=== PATIENT | male | born 1955 | race Caucasian/White ===

== ENCOUNTER 2019-11-17 15:58 | Inpatient (IN) ==
[2019-11-17] MEDS ORDERED: Morphine Sulfate 2 MG/ML SYRINGE IVP ONE (16:14)
[2019-11-17 16:43] LABS: Hemoglobin 11.2 g/dL (12.9-16.9); Immature Granulocytes % 0.4 % (0-4)
[2019-11-17 16:45] LABS: Basophils % 0.5 %; Eosinophils % 0.4 %; Hematocrit 31.1 % (37.5-50.1); Lymphocytes # 1.3 K/mcL (0.6-4.6); Lymphocytes % 22.1 %; Mean Corpuscular Hemoglobin 33.8 pg (28.0-33.3); Mean Platelet Volume 11.9 fL (9.4-12.4); Monocytes # 0.6 K/mcL (0.0-1.3); Neutrophils # 3.8 K/mcL (1.6-8.9); Red Blood Count 3.31 M/mcL (4.19-5.50); Red Cell Distribution Width 13.2 % (11.5-14.5); Segmented Neutrophils % 66.6 %; White Blood Count 5.7 K/mcL (4.3-11.1)
[2019-11-17 16:50] LABS: INR 1.2; Prothrombin Time 13.7 Seconds (9.4-12.1)
[2019-11-17 16:51] LABS: Platelet Count 59 K/mcL (140-400)
[2019-11-17 16:52] LABS: Activated Partial Thrombo Time 32.9 Seconds (26.0-36.0)
[2019-11-17 17:06] LABS: Alanine Aminotransferase 65 Units/L (7-52); Albumin 3.6 g/dL (3.5-5.7); Albumin/Globulin Ratio 1.1 (1.1-2.2); Alkaline Phosphatase 264 Units/L (34-104); Aspartate Amino Transferase 254 Units/L (13-39); BUN/Creatinine Ratio 13 (6-26); Bilirubin,Direct 0.7 mg/dL (0.0-0.2); Bilirubin,Indirect 0.7 mg/dL (0.0-1.0); Bilirubin,Total 1.4 mg/dL (0.3-1.0); Blood Urea Nitrogen 7 mg/dL (8-23); Calcium 7.8 mg/dL (8.6-10.3); Carbon Dioxide 20 mEq/L (23-29); Chloride 91 mEq/L (98-107); Creatine Kinase 204 Units/L (30-223); Globulin 3.4 g/dL (2.4-3.5); Glucose 121 mg/dL (70-105); Osmolality,Calculated 255 (280-300); Potassium 3.7 mEq/L (3.5-5.1); Sodium 123 mEq/L (136-145); Troponin I < 0.03 ng/mL (< 0.04); eGFR For African Americans > 60 (> 60); eGFR For Non-African Americans > 60 (> 60)
[2019-11-17] MEDS ORDERED: *HR* LORazepam 2 MG/ML VIAL IVP PRN ×2 (18:09)
[2019-11-17] MEDS ORDERED: Thiamine (B-1) 100 MG TABLET PO SCH (18:15)
[2019-11-17] MEDS ORDERED: Folic Acid 1 MG TABLET PO SCH (18:15)
[2019-11-17] MEDS ORDERED: Vitamin B Complex/Vit C/Vit E 1 EACH TABLET PO SCH (18:15)
[2019-11-17] MEDS ORDERED: *HR* HYDROcodone/Acet 5/325 mg TABLET PO PRN (18:18)
[2019-11-17] MEDS ORDERED: Acetaminophen 325 MG TABLET PO PRN (18:18)
[2019-11-17] MEDS ORDERED: Naloxone 0.4 MG/ML INJ IVP PRN (18:18)
[2019-11-17] MEDS ORDERED: 0.9 % Sodium Chloride 1,000 ML IVC SCH (18:30)
[2019-11-17 18:34] LABS: Ethanol 411 mg/dL (Less than 10)
[2019-11-17] MEDS ORDERED: Aspirin Enteric Coated 81 MG Tablet PO SCH (18:45)
[2019-11-17] MEDS ORDERED: *HR* OxyCODONE Immed Rel 5 MG TABLET PO PRN (19:00)
[2019-11-17] MEDS: Ibuprofen 600 MG TABLET PO PRN (19:24)
[2019-11-17] MEDS: Aspirin Enteric Coated 81 MG Tablet PO SCH (21:43)
[2019-11-17] MEDS: Vitamin B Complex/Vit C/Vit E 1 EACH TABLET PO SCH (21:43)
[2019-11-17] MEDS: Thiamine (B-1) 100 MG TABLET PO SCH (21:43)
[2019-11-17] MEDS: *HR* OxyCODONE Immed Rel 5 MG TABLET PO PRN (22:11)
[2019-11-18] MEDS: Nicotine 14 MG PATCH.TD24 TD SCH ×2 (00:45→08:44)
[2019-11-18 00:57] LABS: Mean Corpuscular Volume 93.9 fL (83.0-100.0)
[2019-11-18 00:59] LABS: Hematocrit 27.5 % (37.5-50.1); Hemoglobin 9.9 g/dL (12.9-16.9); Immature Platelets 11.3 % (1.1-6.1); Mean Corpuscular Hemoglobin 33.8 pg (28.0-33.3); Mean Platelet Volume 11.7 fL (9.4-12.4); Red Blood Count 2.93 M/mcL (4.19-5.50); Red Cell Distribution Width 13.5 % (11.5-14.5); White Blood Count 5.5 K/mcL (4.3-11.1)
[2019-11-18 01:04] LABS: INR 1.2; Prothrombin Time 13.9 Seconds (9.4-12.1)
[2019-11-18 01:07] LABS: Activated Partial Thrombo Time 33.7 Seconds (26.0-36.0)
[2019-11-18 01:18] LABS: Albumin 3.1 g/dL (3.5-5.7); BUN/Creatinine Ratio 10 (6-26); Bilirubin,Direct 0.6 mg/dL (0.0-0.2); Bilirubin,Total 1.6 mg/dL (0.3-1.0); Blood Urea Nitrogen 6 mg/dL (8-23); Calcium 7.5 mg/dL (8.6-10.3); Carbon Dioxide 22 mEq/L (23-29); Chloride 95 mEq/L (98-107); Glucose 140 mg/dL (70-105); Magnesium 1.6 mg/dL (1.6-2.6); Osmolality,Calculated 268 (280-300); Phosphorous 3.3 mg/dL (2.7-4.5); Potassium 3.2 mEq/L (3.5-5.1); Sodium 129 mEq/L (136-145); Total Protein 6.1 g/dL (6.4-8.9); eGFR For African Americans > 60 (> 60); eGFR For Non-African Americans > 60 (> 60)
[2019-11-18] MEDS: Ibuprofen 600 MG TABLET PO PRN ×2 (01:55→17:29)
[2019-11-18] MEDS: *HR* OxyCODONE Immed Rel 5 MG TABLET PO PRN ×3 (04:21→23:10)
[2019-11-18] MEDS ORDERED: Calcium Gluconate 1gm/50mL 1 GM/50 ML BAG IVPB ONE (07:09)
[2019-11-18 07:57] LABS: Amphetamine Screen,Urine Negative ng/mL (Cutoff=1000); Barbiturate Screen,Urine Negative ng/mL (Cutoff=200); Benzodiazepines Screen,Urine Negative ng/mL (Cutoff=200); Cannabinoid Screen,Urine Negative ng/mL (Cutoff = 50); Cocaine Screen,Urine Negative ng/mL (Cutoff= 300); Opiate Screen,Urine Positive ng/mL (Cutoff=300); Phencyclidine Screen,Urine Negative ng/mL (Cutoff=25)
[2019-11-18] MEDS: Thiamine (B-1) 100 MG TABLET PO SCH (08:42)
[2019-11-18] MEDS: Aspirin Enteric Coated 81 MG Tablet PO SCH (08:42)
[2019-11-18] MEDS: Vitamin B Complex/Vit C/Vit E 1 EACH TABLET PO SCH (08:42)
[2019-11-18] MEDS: *HR* LORazepam 2 MG/ML VIAL IVP PRN ×4 (09:42→21:55)
[2019-11-18] MEDS ORDERED: *HR* LORazepam 2 MG/ML VIAL IVP STA (18:31)
[2019-11-18] MEDS: Lactulose Oral Soln 20 GM/30 ML UDC PO SCH (19:53)
[2019-11-18] MEDS: Folic Acid 1 MG TABLET PO SCH (19:56)
[2019-11-18] MEDS ORDERED: *HR* LORazepam 2 MG/ML VIAL IM STA (22:46)
[2019-11-19] MEDS: *HR* LORazepam 2 MG/ML VIAL IVP PRN (04:13)
[2019-11-19 07:22] LABS: Mean Corpuscular Volume 96.2 fL (83.0-100.0)
[2019-11-19 07:24] LABS: Hematocrit 28.2 % (37.5-50.1); Hemoglobin 9.8 g/dL (12.9-16.9); Immature Platelets 13.5 % (1.1-6.1); Mean Corpuscular HGB Conc 34.8 g/dL (31.6-35.5); Mean Corpuscular Hemoglobin 33.4 pg (28.0-33.3); Mean Platelet Volume 11.5 fL (9.4-12.4); Red Blood Count 2.93 M/mcL (4.19-5.50); Red Cell Distribution Width 13.5 % (11.5-14.5); White Blood Count 3.9 K/mcL (4.3-11.1)
[2019-11-19 07:44] LABS: BUN/Creatinine Ratio 11 (6-26); Blood Urea Nitrogen 6 mg/dL (8-23); Calcium 8.2 mg/dL (8.6-10.3); Carbon Dioxide 27 mEq/L (23-29); Chloride 100 mEq/L (98-107); Glucose 120 mg/dL (70-105); Magnesium 1.9 mg/dL (1.6-2.6); Osmolality,Calculated 275 (280-300); Potassium 3.8 mEq/L (3.5-5.1); Sodium 133 mEq/L (136-145); eGFR For African Americans > 60 (> 60); eGFR For Non-African Americans > 60 (> 60)
[2019-11-19 07:45] LABS: Albumin 3.4 g/dL (3.5-5.7); Albumin/Globulin Ratio 1.1 (1.1-2.2); Bilirubin,Indirect 1.6 mg/dL (0.0-1.0); Bilirubin,Total 3.6 mg/dL (0.3-1.0); Total Protein 6.4 g/dL (6.4-8.9)
[2019-11-19] MEDS: Aspirin Enteric Coated 81 MG Tablet PO SCH (07:46)
[2019-11-19] MEDS: Lactulose Oral Soln 20 GM/30 ML UDC PO SCH ×2 (07:48→19:56)
[2019-11-19] MEDS: Folic Acid 1 MG TABLET PO SCH (07:58)
[2019-11-19] MEDS: Nicotine 14 MG PATCH.TD24 TD SCH (07:59)
[2019-11-19] MEDS: Vitamin B Complex/Vit C/Vit E 1 EACH TABLET PO SCH (08:00)
[2019-11-19] MEDS: Thiamine (B-1) 100 MG TABLET PO SCH (08:00)
[2019-11-19 08:32] LABS: Hemoglobin 9.9 g/dL (12.9-16.9)
[2019-11-19 08:34] LABS: Hematocrit 28.2 % (37.5-50.1)
[2019-11-19] MEDS ORDERED: 0.9 % Sodium Chloride 250 ML ONE (14:55)
[2019-11-19] MEDS ORDERED: *HR* Promethazine 25 MG/ML VIAL IVP PRN (15:53)
[2019-11-19] MEDS ORDERED: Ondansetron 4 MG/2 ML VIAL IVP ONE (15:53)
[2019-11-19] MEDS ORDERED: *HR* HYDROmorphone PF 0.5 MG/0.5 ML SYRINGE IVP PRN (15:53)
[2019-11-19] MEDS ORDERED: *HR* OxyCODONE Immed Rel 5 MG TABLET PO PRN (15:53)
[2019-11-19] MEDS ORDERED: *HR* FentaNYL (PF) 100 MCG/2 ML VIAL ONE ×2 (16:19→17:02)
[2019-11-19] MEDS ORDERED: *HR* Succinylcholine 200 MG/10 ML VIAL IVP ONE (16:19)
[2019-11-19] MEDS ORDERED: Lidocaine -MPF 2% 2 ML VIAL ONE (16:19)
[2019-11-19] MEDS ORDERED: *HR* Propofol 200 MG/20 ML VIAL IVP ONE (16:19)
[2019-11-19] MEDS ORDERED: ceFAZolin 2,000 MG in Water for inj. (sterile) 20 ML IVP ONE (16:29)
[2019-11-19] MEDS ORDERED: Ondansetron 4 MG/2 ML VIAL ONE (16:34)
[2019-11-19] MEDS ORDERED: Dexamethasone 4 MG/ML VIAL ONE (16:34)
[2019-11-19] MEDS ORDERED: Lidocaine HCL 4 ML Topical Solution (Laryng-O-Jet Kit Sterile Pak) TP ONE (16:34)
[2019-11-19] MEDS ORDERED: *HR* Metoprolol 5 MG/5 ML VIAL IVP ONE (17:31)
[2019-11-19] MEDS ORDERED: Ondansetron 4 MG/2 ML VIAL IVP PRN (19:12)
[2019-11-19] MEDS ORDERED: Ibuprofen 600 MG TABLET PO PRN (19:12)
[2019-11-19] MEDS ORDERED: Sennosides 8.6 MG TABLET PO PRN (19:12)
[2019-11-19] MEDS ORDERED: *HR* LORazepam 2 MG/ML VIAL IVP PRN (19:12)
[2019-11-19] MEDS ORDERED: *HR* OxyCODONE/APAP 5/325 TABLET PO PRN (19:12)
[2019-11-19] MEDS: *HR* OxyCODONE Immed Rel 5 MG TABLET PO PRN (21:23)
[2019-11-20] MEDS: CeFAZolin 2 GM/120 ML BAG IVPB SCH ×2 (00:41→08:04)
[2019-11-20] MEDS: *HR* LORazepam 2 MG/ML VIAL IVP PRN (03:19)
[2019-11-20] MEDS: *HR* OxyCODONE Immed Rel 5 MG TABLET PO PRN ×3 (03:19→20:37)
[2019-11-20 05:54] LABS: Hemoglobin 9.1 g/dL (12.9-16.9)
[2019-11-20] MEDS: Lactulose Oral Soln 20 GM/30 ML UDC PO SCH ×2 (07:59→20:36)
[2019-11-20] MEDS: Folic Acid 1 MG TABLET PO SCH (08:00)
[2019-11-20] MEDS: Nicotine 14 MG PATCH.TD24 TD SCH (08:00)
[2019-11-20] MEDS: Cholecalciferol (D-3) 1,000 UNIT (25MCG) TABLET PO SCH (08:01)
[2019-11-20] MEDS: Thiamine (B-1) 100 MG TABLET PO SCH (08:01)
[2019-11-20] MEDS: Vitamin B Complex/Vit C/Vit E 1 EACH TABLET PO SCH (08:02)
[2019-11-20 08:51] LABS: Hemoglobin 9.2 g/dL (12.9-16.9)
[2019-11-20 08:52] LABS: Hematocrit 26.5 % (37.5-50.1); Immature Platelets 10.1 % (1.1-6.1); Mean Corpuscular HGB Conc 34.7 g/dL (31.6-35.5); Mean Corpuscular Hemoglobin 33.9 pg (28.0-33.3); Mean Corpuscular Volume 97.8 fL (83.0-100.0); Mean Platelet Volume 11.1 fL (9.4-12.4); Red Blood Count 2.71 M/mcL (4.19-5.50); Red Cell Distribution Width 13.5 % (11.5-14.5); White Blood Count 6.5 K/mcL (4.3-11.1)
[2019-11-20 08:59] LABS: BUN/Creatinine Ratio 12 (6-26); Blood Urea Nitrogen 7 mg/dL (8-23); Calcium 8.2 mg/dL (8.6-10.3); Carbon Dioxide 27 mEq/L (23-29); Chloride 97 mEq/L (98-107); Glucose 130 mg/dL (70-105); Osmolality,Calculated 274 (280-300); Potassium 3.9 mEq/L (3.5-5.1); Sodium 132 mEq/L (136-145); eGFR For African Americans > 60 (> 60); eGFR For Non-African Americans > 60 (> 60)
[2019-11-20] MEDS ORDERED: Naloxone 0.4 MG/ML INJ IVP PRN (11:57)
[2019-11-20] MEDS: Aspirin Enteric Coated 81 MG Tablet PO SCH (15:07)
[2019-11-21 07:56] LABS: Hematocrit 27.4 % (37.5-50.1); Hemoglobin 9.2 g/dL (12.9-16.9); Mean Corpuscular HGB Conc 33.6 g/dL (31.6-35.5); Mean Corpuscular Hemoglobin 33.7 pg (28.0-33.3); Mean Corpuscular Volume 100.4 fL (83.0-100.0); Mean Platelet Volume 11.2 fL (9.4-12.4); Platelet Count 102 K/mcL (140-400); Red Blood Count 2.73 M/mcL (4.19-5.50); Red Cell Distribution Width 13.9 % (11.5-14.5); White Blood Count 7.8 K/mcL (4.3-11.1)
[2019-11-21 08:05] LABS: BUN/Creatinine Ratio 16 (6-26); Blood Urea Nitrogen 11 mg/dL (8-23); Calcium 8.3 mg/dL (8.6-10.3); Carbon Dioxide 29 mEq/L (23-29); Chloride 98 mEq/L (98-107); Glucose 124 mg/dL (70-105); Osmolality,Calculated 279 (280-300); Potassium 3.6 mEq/L (3.5-5.1); Sodium 134 mEq/L (136-145); eGFR For African Americans > 60 (> 60); eGFR For Non-African Americans > 60 (> 60)
[2019-11-21 08:46] LABS: Alanine Aminotransferase 34 Units/L (7-52); Albumin 3.3 g/dL (3.5-5.7); Alkaline Phosphatase 203 Units/L (34-104); Aspartate Amino Transferase 99 Units/L (13-39); Bilirubin,Direct 1.8 mg/dL (0.0-0.2); Bilirubin,Indirect 1.3 mg/dL (0.0-1.0); Bilirubin,Total 3.1 mg/dL (0.3-1.0); Globulin 3.3 g/dL (2.4-3.5); Total Protein 6.6 g/dL (6.4-8.9)
[2019-11-21] MEDS: Cholecalciferol (D-3) 1,000 UNIT (25MCG) TABLET PO SCH (09:00)
[2019-11-21] MEDS: Aspirin Enteric Coated 81 MG Tablet PO SCH (09:00)
[2019-11-21] MEDS: Folic Acid 1 MG TABLET PO SCH (09:01)
[2019-11-21] MEDS: Vitamin B Complex/Vit C/Vit E 1 EACH TABLET PO SCH (09:01)
[2019-11-21] MEDS: *HR* OxyCODONE Immed Rel 5 MG TABLET PO PRN ×3 (09:01→21:21)
[2019-11-21] MEDS: Thiamine (B-1) 100 MG TABLET PO SCH (09:01)
[2019-11-21] MEDS: Nicotine 14 MG PATCH.TD24 TD SCH (09:01)
[2019-11-21] MEDS: Lactulose Oral Soln 20 GM/30 ML UDC PO SCH ×2 (09:02→21:23)
[2019-11-21] MEDS: *HR* LORazepam 2 MG/ML VIAL IVP PRN ×2 (10:09→18:25)
[2019-11-22 01:25] LABS: Hematocrit 26.2 % (37.5-50.1); Hemoglobin 8.9 g/dL (12.9-16.9); Immature Platelets 7.3 % (1.1-6.1); Mean Platelet Volume 10.8 fL (9.4-12.4); Red Blood Count 2.62 M/mcL (4.19-5.50); Red Cell Distribution Width 14.1 % (11.5-14.5); White Blood Count 7.2 K/mcL (4.3-11.1)
[2019-11-22 01:44] LABS: BUN/Creatinine Ratio 16 (6-26); Blood Urea Nitrogen 11 mg/dL (8-23); Calcium 8.4 mg/dL (8.6-10.3); Carbon Dioxide 29 mEq/L (23-29); Chloride 99 mEq/L (98-107); Glucose 114 mg/dL (70-105); Osmolality,Calculated 280 (280-300); Potassium 3.5 mEq/L (3.5-5.1); Sodium 135 mEq/L (136-145); eGFR For African Americans > 60 (> 60); eGFR For Non-African Americans > 60 (> 60)
[2019-11-22] MEDS: *HR* LORazepam 2 MG/ML VIAL IVP PRN (03:48)
[2019-11-22] MEDS: *HR* OxyCODONE Immed Rel 5 MG TABLET PO PRN ×3 (05:17→21:31)
[2019-11-22] MEDS: 0.9 % Sodium Chloride 1,000 ML IVC SCH ×2 (09:52→18:12)
[2019-11-22] MEDS: Folic Acid 1 MG TABLET PO SCH (09:57)
[2019-11-22] MEDS: Aspirin Enteric Coated 81 MG Tablet PO SCH (09:57)
[2019-11-22] MEDS: Lactulose Oral Soln 20 GM/30 ML UDC PO SCH ×2 (09:57→23:48)
[2019-11-22] MEDS: Cholecalciferol (D-3) 1,000 UNIT (25MCG) TABLET PO SCH (09:58)
[2019-11-22] MEDS: Vitamin B Complex/Vit C/Vit E 1 EACH TABLET PO SCH (09:58)
[2019-11-22] MEDS: Thiamine (B-1) 100 MG TABLET PO SCH (09:58)
[2019-11-22] MEDS: Nicotine 14 MG PATCH.TD24 TD SCH (11:00)
[2019-11-22] MEDS ORDERED: Ringers Solution, Lactated 1,000 ML IVC ONE (14:37)
[2019-11-22] MEDS ORDERED: *HR* LORazepam 2 MG/ML VIAL IVP ONE (23:29)
[2019-11-23] MEDS: *HR* OxyCODONE Immed Rel 5 MG TABLET PO PRN ×4 (01:35→20:54)
[2019-11-23 02:44] LABS: Hemoglobin 8.3 g/dL (12.9-16.9); Mean Corpuscular Volume 101.7 fL (83.0-100.0)
[2019-11-23 02:45] LABS: Hematocrit 24.4 % (37.5-50.1); Immature Platelets 5.6 % (1.1-6.1); Mean Corpuscular Hemoglobin 34.6 pg (28.0-33.3); Mean Platelet Volume 10.8 fL (9.4-12.4); Red Blood Count 2.4 M/mcL (4.19-5.50); Red Cell Distribution Width 14.4 % (11.5-14.5); White Blood Count 6.4 K/mcL (4.3-11.1)
[2019-11-23 02:58] LABS: BUN/Creatinine Ratio 17 (6-26); Blood Urea Nitrogen 9 mg/dL (8-23); Calcium 8.2 mg/dL (8.6-10.3); Carbon Dioxide 27 mEq/L (23-29); Chloride 101 mEq/L (98-107); Glucose 120 mg/dL (70-105); Osmolality,Calculated 278 (280-300); Potassium 3.6 mEq/L (3.5-5.1); Sodium 134 mEq/L (136-145); eGFR For African Americans > 60 (> 60); eGFR For Non-African Americans > 60 (> 60)
[2019-11-23] MEDS: *HR* LORazepam 2 MG/ML VIAL IVP PRN ×3 (04:39→14:12)
[2019-11-23] MEDS: Folic Acid 1 MG TABLET PO SCH (07:39)
[2019-11-23] MEDS: Aspirin Enteric Coated 81 MG Tablet PO SCH (07:39)
[2019-11-23] MEDS: Thiamine (B-1) 100 MG TABLET PO SCH (07:39)
[2019-11-23] MEDS: Vitamin B Complex/Vit C/Vit E 1 EACH TABLET PO SCH (07:40)
[2019-11-23] MEDS: Lactulose Oral Soln 20 GM/30 ML UDC PO SCH ×2 (07:41→20:46)
[2019-11-23] MEDS: Nicotine 14 MG PATCH.TD24 TD SCH (07:41)
[2019-11-23] MEDS: Cholecalciferol (D-3) 1,000 UNIT (25MCG) TABLET PO SCH (07:42)
[2019-11-23] MEDS: polyethylene glycoL 3350 17 GM POWD.PACK PO SCH (12:19)
[2019-11-23 15:28] LABS: Bilirubin,Urine Negative (Negative); Blood,Urine Moderate (Negative); Clarity,Urine Clear (Clear); Color,Urine Yellow (Yellow); Glucose,Urine (UA) Normal (Normal); Ketones,Urine Negative (Negative); Leukocyte Esterase,Urine Negative (Negative); Nitrite,Urine Negative (Negative); Protein,Urine Negative (Neg-Trace); Specific Gravity,Urine 1.009 (1.010-1.025)
[2019-11-24] MEDS: *HR* OxyCODONE Immed Rel 5 MG TABLET PO PRN ×4 (01:42→21:39)
[2019-11-24] MEDS: *HR* LORazepam 2 MG/ML VIAL IVP PRN (01:43)
[2019-11-24 05:04] LABS: Hematocrit 27.2 % (37.5-50.1); Hemoglobin 9.2 g/dL (12.9-16.9); Mean Corpuscular HGB Conc 33.8 g/dL (31.6-35.5); Mean Corpuscular Hemoglobin 34.5 pg (28.0-33.3); Mean Corpuscular Volume 101.9 fL (83.0-100.0); Mean Platelet Volume 10.3 fL (9.4-12.4); Platelet Count 146 K/mcL (140-400); Red Blood Count 2.67 M/mcL (4.19-5.50); Red Cell Distribution Width 14.5 % (11.5-14.5); White Blood Count 6.2 K/mcL (4.3-11.1)
[2019-11-24 05:16] LABS: BUN/Creatinine Ratio 14 (6-26); Blood Urea Nitrogen 7 mg/dL (8-23); Calcium 8.5 mg/dL (8.6-10.3); Carbon Dioxide 27 mEq/L (23-29); Chloride 98 mEq/L (98-107); Glucose 145 mg/dL (70-105); Osmolality,Calculated 277 (280-300); Potassium 3.5 mEq/L (3.5-5.1); Sodium 133 mEq/L (136-145); eGFR For African Americans > 60 (> 60); eGFR For Non-African Americans > 60 (> 60)
[2019-11-24] MEDS: Folic Acid 1 MG TABLET PO SCH (10:45)
[2019-11-24] MEDS: Thiamine (B-1) 100 MG TABLET PO SCH (10:46)
[2019-11-24] MEDS: Vitamin B Complex/Vit C/Vit E 1 EACH TABLET PO SCH (10:46)
[2019-11-24] MEDS: Aspirin Enteric Coated 81 MG Tablet PO SCH (10:46)
[2019-11-24] MEDS: Lactulose Oral Soln 20 GM/30 ML UDC PO SCH ×2 (10:47→21:40)
[2019-11-24] MEDS: Nicotine 14 MG PATCH.TD24 TD SCH (10:47)
[2019-11-24] MEDS: polyethylene glycoL 3350 17 GM POWD.PACK PO SCH (10:47)
[2019-11-24] MEDS: Cholecalciferol (D-3) 1,000 UNIT (25MCG) TABLET PO SCH (10:48)
[2019-11-25] MEDS: *HR* LORazepam 2 MG/ML VIAL IVP PRN ×3 (02:11→08:33)
[2019-11-25] MEDS: *HR* OxyCODONE Immed Rel 5 MG TABLET PO PRN ×2 (04:09→08:29)
[2019-11-25 05:44] LABS: Hematocrit 27.5 % (37.5-50.1); Hemoglobin 9.4 g/dL (12.9-16.9); Mean Corpuscular HGB Conc 34.2 g/dL (31.6-35.5); Mean Corpuscular Hemoglobin 34.3 pg (28.0-33.3); Mean Corpuscular Volume 100.4 fL (83.0-100.0); Mean Platelet Volume 10.9 fL (9.4-12.4); Platelet Count 168 K/mcL (140-400); Red Blood Count 2.74 M/mcL (4.19-5.50); Red Cell Distribution Width 14.6 % (11.5-14.5); White Blood Count 5.3 K/mcL (4.3-11.1)
[2019-11-25 05:57] LABS: BUN/Creatinine Ratio 16 (6-26); Blood Urea Nitrogen 9 mg/dL (8-23); Calcium 8.9 mg/dL (8.6-10.3); Carbon Dioxide 29 mEq/L (23-29); Chloride 101 mEq/L (98-107); Glucose 109 mg/dL (70-105); Osmolality,Calculated 283 (280-300); Potassium 3.5 mEq/L (3.5-5.1); Sodium 137 mEq/L (136-145); eGFR For African Americans > 60 (> 60); eGFR For Non-African Americans > 60 (> 60)
[2019-11-25] MEDS: Lactulose Oral Soln 20 GM/30 ML UDC PO SCH ×2 (08:22→20:51)
[2019-11-25] MEDS: Vitamin B Complex/Vit C/Vit E 1 EACH TABLET PO SCH (08:23)
[2019-11-25] MEDS: Aspirin Enteric Coated 81 MG Tablet PO SCH (08:23)
[2019-11-25] MEDS: polyethylene glycoL 3350 17 GM POWD.PACK PO SCH (08:23)
[2019-11-25] MEDS: Folic Acid 1 MG TABLET PO SCH (08:23)
[2019-11-25] MEDS: Cholecalciferol (D-3) 1,000 UNIT (25MCG) TABLET PO SCH (08:24)
[2019-11-25] MEDS: Thiamine (B-1) 100 MG TABLET PO SCH (08:24)
[2019-11-25] MEDS: Nicotine 14 MG PATCH.TD24 TD SCH (08:24)
[2019-11-25] MEDS ORDERED: Isovue-370 500 ML BOTTLE IVP ONE (11:22)
[2019-11-25] MEDS ORDERED: Haloperidol Lactate 5 MG/ML VIAL IVP PRN (11:24)
[2019-11-25] MEDS ORDERED: *HR* LORazepam 2 MG/ML VIAL IVP ONE (19:21)
[2019-11-25] MEDS ORDERED: *HR* LORazepam 2 MG/ML VIAL IVP PRN ×3 (19:51)
[2019-11-26] MEDS: Vitamin B Complex/Vit C/Vit E 1 EACH TABLET PO SCH (08:00)
[2019-11-26] MEDS: Aspirin Enteric Coated 81 MG Tablet PO SCH (08:00)
[2019-11-26] MEDS: Thiamine (B-1) 100 MG TABLET PO SCH (08:00)
[2019-11-26] MEDS: Cholecalciferol (D-3) 1,000 UNIT (25MCG) TABLET PO SCH (08:00)
[2019-11-26] MEDS: Nicotine 14 MG PATCH.TD24 TD SCH (08:01)
[2019-11-26] MEDS: Lactulose Oral Soln 20 GM/30 ML UDC PO SCH ×2 (08:01→20:15)
[2019-11-26] MEDS: Folic Acid 1 MG TABLET PO SCH (08:01)
[2019-11-26] MEDS ORDERED: *HR* LORazepam 2 MG/ML VIAL IVP PRN ×2 (10:15→10:16)
[2019-11-26] MEDS ORDERED: QUEtiapine Fumarate 25 MG TABLET PO SCH (21:00)
[2019-11-26] MEDS ORDERED: *HR* LORazepam 2 MG/ML VIAL IVP ONE (22:24)
[2019-11-27] MEDS: *HR* OxyCODONE Immed Rel 5 MG TABLET PO PRN ×2 (08:48→21:27)
[2019-11-27] MEDS: Cholecalciferol (D-3) 1,000 UNIT (25MCG) TABLET PO SCH (08:49)
[2019-11-27] MEDS: Aspirin Enteric Coated 81 MG Tablet PO SCH (08:49)
[2019-11-27] MEDS: Folic Acid 1 MG TABLET PO SCH (08:49)
[2019-11-27] MEDS: Vitamin B Complex/Vit C/Vit E 1 EACH TABLET PO SCH (08:50)
[2019-11-27] MEDS: Lactulose Oral Soln 20 GM/30 ML UDC PO SCH ×2 (08:50→21:17)
[2019-11-27] MEDS: Thiamine (B-1) 100 MG TABLET PO SCH (08:50)
[2019-11-27] MEDS: Nicotine 14 MG PATCH.TD24 TD SCH (08:52)
[2019-11-27] MEDS ORDERED: *HR* LORazepam 1 MG TABLET PO PRN (10:29)
[2019-11-27] MEDS ORDERED: Ringers Solution, Lactated 1,000 ML IVC ONE (18:32)
[2019-11-27] MEDS ORDERED: *HR* LORazepam 1 MG TABLET PO SCH (21:00)
[2019-11-27] MEDS ORDERED: Morphine Sulfate 2 MG/ML SYRINGE IVP ONE (22:59)
[2019-11-28] MEDS ORDERED: *HR* LORazepam 2 MG/ML VIAL IM STA ×2 (01:49→22:40)
[2019-11-28] MEDS ORDERED: Melatonin 3 MG TABLET PO ONE (03:42)
[2019-11-28 04:13] LABS: Hematocrit 32.3 % (37.5-50.1); Hemoglobin 10.5 g/dL (12.9-16.9); Mean Corpuscular HGB Conc 32.5 g/dL (31.6-35.5); Mean Corpuscular Hemoglobin 33.3 pg (28.0-33.3); Mean Corpuscular Volume 102.5 fL (83.0-100.0); Platelet Count 236 K/mcL (140-400); Red Blood Count 3.15 M/mcL (4.19-5.50); Red Cell Distribution Width 14.9 % (11.5-14.5)
[2019-11-28 04:32] LABS: BUN/Creatinine Ratio 12 (6-26); Blood Urea Nitrogen 7 mg/dL (8-23); Carbon Dioxide 29 mEq/L (23-29); Chloride 104 mEq/L (98-107); Glucose 126 mg/dL (70-105); Osmolality,Calculated 290 (280-300); Potassium 3.1 mEq/L (3.5-5.1); Sodium 140 mEq/L (136-145); eGFR For African Americans > 60 (> 60); eGFR For Non-African Americans > 60 (> 60)
[2019-11-28] MEDS: *HR* OxyCODONE Immed Rel 5 MG TABLET PO PRN ×2 (06:20→13:56)
[2019-11-28] MEDS: Lactulose Oral Soln 20 GM/30 ML UDC PO SCH ×2 (09:10→20:20)
[2019-11-28] MEDS: Aspirin Enteric Coated 81 MG Tablet PO SCH (09:11)
[2019-11-28] MEDS: Thiamine (B-1) 100 MG TABLET PO SCH (09:11)
[2019-11-28] MEDS: Cholecalciferol (D-3) 1,000 UNIT (25MCG) TABLET PO SCH (09:11)
[2019-11-28] MEDS: Folic Acid 1 MG TABLET PO SCH (09:11)
[2019-11-28] MEDS: Vitamin B Complex/Vit C/Vit E 1 EACH TABLET PO SCH (09:12)
[2019-11-28] MEDS: Nicotine 14 MG PATCH.TD24 TD SCH (09:12)
[2019-11-28] MEDS ORDERED: Nicotine 2 MG GUM BC PRN (09:47)
[2019-11-28] MEDS: Nicotine 21 MG PATCH.TD24 TD SCH (11:34)
[2019-11-28] MEDS: clonazePAM 0.5 MG TABLET PO SCH ×2 (13:56→20:19)
[2019-11-28] MEDS ORDERED: Haloperidol Lactate 5 MG/ML VIAL IVP ONE (14:24)
[2019-11-28 17:44] LABS: Bilirubin,Urine Negative (Negative); Blood,Urine Negative (Negative); Clarity,Urine Clear (Clear); Color,Urine Yellow (Yellow); Glucose,Urine (UA) Normal (Normal); Ketones,Urine Negative (Negative); Leukocyte Esterase,Urine Negative (Negative); Nitrite,Urine Negative (Negative); Protein,Urine Negative (Neg-Trace); Specific Gravity,Urine 1.005 (1.010-1.025); Urobilinogen,Urine Normal (Normal)
[2019-11-28] MEDS: traZODone 50 MG TABLET PO SCH (20:19)
[2019-11-29 01:07] LABS: Hematocrit 33.8 % (37.5-50.1); Mean Corpuscular HGB Conc 32.5 g/dL (31.6-35.5); Mean Corpuscular Hemoglobin 33.4 pg (28.0-33.3); Mean Corpuscular Volume 102.7 fL (83.0-100.0); Mean Platelet Volume 11.3 fL (9.4-12.4); Platelet Count 272 K/mcL (140-400); Red Blood Count 3.29 M/mcL (4.19-5.50); White Blood Count 8.4 K/mcL (4.3-11.1)
[2019-11-29 01:32] LABS: BUN/Creatinine Ratio 9 (6-26); Blood Urea Nitrogen 5 mg/dL (8-23); Calcium 9.4 mg/dL (8.6-10.3); Carbon Dioxide 25 mEq/L (23-29); Chloride 105 mEq/L (98-107); Glucose 115 mg/dL (70-105); Osmolality,Calculated 286 (280-300); Potassium 4.1 mEq/L (3.5-5.1); Sodium 139 mEq/L (136-145); eGFR For African Americans > 60 (> 60); eGFR For Non-African Americans > 60 (> 60)
[2019-11-29] MEDS: Vitamin B Complex/Vit C/Vit E 1 EACH TABLET PO SCH (07:38)
[2019-11-29] MEDS: Lactulose Oral Soln 20 GM/30 ML UDC PO SCH ×2 (07:38→21:02)
[2019-11-29] MEDS: Thiamine (B-1) 100 MG TABLET PO SCH (07:38)
[2019-11-29] MEDS: clonazePAM 0.5 MG TABLET PO SCH ×3 (07:38→21:02)
[2019-11-29] MEDS: Aspirin Enteric Coated 81 MG Tablet PO SCH (07:38)
[2019-11-29] MEDS: Cholecalciferol (D-3) 1,000 UNIT (25MCG) TABLET PO SCH (07:38)
[2019-11-29] MEDS: Nicotine 21 MG PATCH.TD24 TD SCH (07:39)
[2019-11-29] MEDS: Folic Acid 1 MG TABLET PO SCH (07:39)
[2019-11-29] MEDS: Haloperidol Lactate 5 MG/ML VIAL IVP SCH ×2 (14:30→23:27)
[2019-11-29] MEDS ORDERED: Haloperidol Lactate 5 MG/ML VIAL IVP SCH (18:00)
[2019-11-29] MEDS: traZODone 50 MG TABLET PO SCH (21:02)
[2019-11-30 02:35] LABS: Hematocrit 33.6 % (37.5-50.1); Hemoglobin 11.1 g/dL (12.9-16.9); Mean Corpuscular Hemoglobin 33.8 pg (28.0-33.3); Mean Corpuscular Volume 102.4 fL (83.0-100.0); Mean Platelet Volume 11.2 fL (9.4-12.4); Platelet Count 265 K/mcL (140-400); Red Blood Count 3.28 M/mcL (4.19-5.50); Red Cell Distribution Width 15.1 % (11.5-14.5); White Blood Count 7.7 K/mcL (4.3-11.1)
[2019-11-30 02:55] LABS: BUN/Creatinine Ratio 14 (6-26); Blood Urea Nitrogen 8 mg/dL (8-23); Calcium 9.1 mg/dL (8.6-10.3); Carbon Dioxide 26 mEq/L (23-29); Chloride 105 mEq/L (98-107); Glucose 105 mg/dL (70-105); Osmolality,Calculated 283 (280-300); Potassium 3.6 mEq/L (3.5-5.1); Sodium 137 mEq/L (136-145); eGFR For African Americans > 60 (> 60); eGFR For Non-African Americans > 60 (> 60)
[2019-11-30] MEDS: Vitamin B Complex/Vit C/Vit E 1 EACH TABLET PO SCH (09:04)
[2019-11-30] MEDS: Folic Acid 1 MG TABLET PO SCH (09:05)
[2019-11-30] MEDS: Thiamine (B-1) 100 MG TABLET PO SCH (09:05)
[2019-11-30] MEDS: Cholecalciferol (D-3) 1,000 UNIT (25MCG) TABLET PO SCH (09:05)
[2019-11-30] MEDS: Nicotine 21 MG PATCH.TD24 TD SCH (09:05)
[2019-11-30] MEDS: Aspirin Enteric Coated 81 MG Tablet PO SCH (09:05)
[2019-11-30] MEDS: clonazePAM 0.5 MG TABLET PO SCH ×2 (09:05→20:13)
[2019-11-30] MEDS: Lactulose Oral Soln 20 GM/30 ML UDC PO SCH ×2 (09:08→20:13)
[2019-11-30] MEDS: Haloperidol Lactate 5 MG/ML VIAL IVP SCH (09:17)
[2019-11-30] MEDS: *HR* Heparin 5,000 UNIT/ML VIAL SQ SCH (16:26)
[2019-11-30] MEDS: traZODone 50 MG TABLET PO SCH (20:13)
[2019-11-30] MEDS: haloperidoL 1 MG TABLET PO SCH (20:13)
[2019-12-01] MEDS: *HR* Heparin 5,000 UNIT/ML VIAL SQ SCH ×2 (05:15→16:49)
[2019-12-01 06:54] LABS: Hematocrit 35.6 % (37.5-50.1); Hemoglobin 11.6 g/dL (12.9-16.9); Mean Corpuscular HGB Conc 32.6 g/dL (31.6-35.5); Mean Corpuscular Hemoglobin 33.2 pg (28.0-33.3); Mean Platelet Volume 10.8 fL (9.4-12.4); Platelet Count 317 K/mcL (140-400); Red Blood Count 3.49 M/mcL (4.19-5.50); White Blood Count 7.6 K/mcL (4.3-11.1)
[2019-12-01 07:18] LABS: BUN/Creatinine Ratio 23 (6-26); Blood Urea Nitrogen 15 mg/dL (8-23); Calcium 9.1 mg/dL (8.6-10.3); Carbon Dioxide 27 mEq/L (23-29); Chloride 104 mEq/L (98-107); Glucose 122 mg/dL (70-105); Osmolality,Calculated 288 (280-300); Potassium 3.9 mEq/L (3.5-5.1); Sodium 138 mEq/L (136-145); eGFR For African Americans > 60 (> 60); eGFR For Non-African Americans > 60 (> 60)
[2019-12-01] MEDS: Folic Acid 1 MG TABLET PO SCH (09:13)
[2019-12-01] MEDS: haloperidoL 1 MG TABLET PO SCH ×2 (09:13→21:48)
[2019-12-01] MEDS: Thiamine (B-1) 100 MG TABLET PO SCH (09:13)
[2019-12-01] MEDS: Aspirin Enteric Coated 81 MG Tablet PO SCH (09:13)
[2019-12-01] MEDS: Lactulose Oral Soln 20 GM/30 ML UDC PO SCH ×2 (09:13→21:48)
[2019-12-01] MEDS: Nicotine 21 MG PATCH.TD24 TD SCH (09:13)
[2019-12-01] MEDS: Cholecalciferol (D-3) 1,000 UNIT (25MCG) TABLET PO SCH (09:14)
[2019-12-01] MEDS: clonazePAM 0.5 MG TABLET PO SCH ×2 (09:14→21:48)
[2019-12-01] MEDS: Vitamin B Complex/Vit C/Vit E 1 EACH TABLET PO SCH (09:14)
[2019-12-01] MEDS: *HR* OxyCODONE Immed Rel 5 MG TABLET PO PRN ×2 (09:17→16:49)
[2019-12-01] MEDS: traZODone 50 MG TABLET PO SCH (21:48)
[2019-12-02] MEDS: *HR* OxyCODONE Immed Rel 5 MG TABLET PO PRN ×2 (02:05→14:35)
[2019-12-02] MEDS: *HR* Heparin 5,000 UNIT/ML VIAL SQ SCH ×2 (06:06→16:58)
[2019-12-02] MEDS: Nicotine 21 MG PATCH.TD24 TD SCH (07:53)
[2019-12-02] MEDS: Lactulose Oral Soln 20 GM/30 ML UDC PO SCH ×2 (07:53→19:55)
[2019-12-02] MEDS: Aspirin Enteric Coated 81 MG Tablet PO SCH (07:56)
[2019-12-02] MEDS: Vitamin B Complex/Vit C/Vit E 1 EACH TABLET PO SCH (07:56)
[2019-12-02] MEDS: Thiamine (B-1) 100 MG TABLET PO SCH (07:56)
[2019-12-02] MEDS: Folic Acid 1 MG TABLET PO SCH (07:57)
[2019-12-02] MEDS: Cholecalciferol (D-3) 1,000 UNIT (25MCG) TABLET PO SCH (07:57)
[2019-12-02] MEDS: haloperidoL 1 MG TABLET PO SCH ×2 (07:57→19:56)
[2019-12-02] MEDS: clonazePAM 0.5 MG TABLET PO SCH (07:57)
[2019-12-02] MEDS: traZODone 50 MG TABLET PO SCH (19:56)
[2019-12-03] MEDS: clonazePAM 0.5 MG TABLET PO PRN (02:04)
[2019-12-03] MEDS: *HR* OxyCODONE Immed Rel 5 MG TABLET PO PRN ×3 (04:57→16:35)
[2019-12-03] MEDS: *HR* Heparin 5,000 UNIT/ML VIAL SQ SCH ×2 (04:57→16:35)
[2019-12-03] MEDS: Lactulose Oral Soln 20 GM/30 ML UDC PO SCH ×2 (07:57→20:07)
[2019-12-03] MEDS: Aspirin Enteric Coated 81 MG Tablet PO SCH (07:58)
[2019-12-03] MEDS: Nicotine 21 MG PATCH.TD24 TD SCH (07:58)
[2019-12-03] MEDS: Thiamine (B-1) 100 MG TABLET PO SCH (07:59)
[2019-12-03] MEDS: Vitamin B Complex/Vit C/Vit E 1 EACH TABLET PO SCH (07:59)
[2019-12-03] MEDS: Folic Acid 1 MG TABLET PO SCH (07:59)
[2019-12-03] MEDS: Cholecalciferol (D-3) 1,000 UNIT (25MCG) TABLET PO SCH (07:59)
[2019-12-03] MEDS: haloperidoL 1 MG TABLET PO SCH (20:07)
[2019-12-03] MEDS: traZODone 50 MG TABLET PO SCH (20:08)
[2019-12-04 05:01] LABS: Hematocrit 33.3 % (37.5-50.1); Hemoglobin 11.3 g/dL (12.9-16.9); Mean Corpuscular HGB Conc 33.9 g/dL (31.6-35.5); Mean Corpuscular Hemoglobin 34.3 pg (28.0-33.3); Mean Corpuscular Volume 101.2 fL (83.0-100.0); Mean Platelet Volume 10.6 fL (9.4-12.4); Platelet Count 299 K/mcL (140-400); Red Blood Count 3.29 M/mcL (4.19-5.50); Red Cell Distribution Width 13.8 % (11.5-14.5); White Blood Count 6.8 K/mcL (4.3-11.1)
[2019-12-04 05:14] LABS: BUN/Creatinine Ratio 17 (6-26); Blood Urea Nitrogen 9 mg/dL (8-23); Calcium 9.3 mg/dL (8.6-10.3); Carbon Dioxide 25 mEq/L (23-29); Chloride 102 mEq/L (98-107); Glucose 108 mg/dL (70-105); Osmolality,Calculated 279 (280-300); Potassium 3.9 mEq/L (3.5-5.1); Sodium 135 mEq/L (136-145); eGFR For African Americans > 60 (> 60); eGFR For Non-African Americans > 60 (> 60)
[2019-12-04] MEDS: *HR* Heparin 5,000 UNIT/ML VIAL SQ SCH ×2 (06:17→17:07)
[2019-12-04] MEDS: Lactulose Oral Soln 20 GM/30 ML UDC PO SCH ×2 (07:45→19:54)
[2019-12-04] MEDS: Folic Acid 1 MG TABLET PO SCH (07:46)
[2019-12-04] MEDS: Nicotine 21 MG PATCH.TD24 TD SCH (07:46)
[2019-12-04] MEDS: Aspirin Enteric Coated 81 MG Tablet PO SCH (07:46)
[2019-12-04] MEDS: Vitamin B Complex/Vit C/Vit E 1 EACH TABLET PO SCH (07:47)
[2019-12-04] MEDS: Cholecalciferol (D-3) 1,000 UNIT (25MCG) TABLET PO SCH (07:47)
[2019-12-04] MEDS: Thiamine (B-1) 100 MG TABLET PO SCH (07:47)
[2019-12-04] MEDS: *HR* OxyCODONE Immed Rel 5 MG TABLET PO PRN ×2 (07:56→17:09)
[2019-12-04] MEDS: haloperidoL 1 MG TABLET PO SCH (19:53)
[2019-12-04] MEDS: traZODone 50 MG TABLET PO SCH (19:54)
[2019-12-05] MEDS: *HR* OxyCODONE Immed Rel 5 MG TABLET PO PRN ×3 (04:25→23:39)
[2019-12-05 06:04] LABS: Hematocrit 34.2 % (37.5-50.1); Hemoglobin 11.3 g/dL (12.9-16.9); Mean Corpuscular Hemoglobin 32.8 pg (28.0-33.3); Mean Corpuscular Volume 99.4 fL (83.0-100.0); Mean Platelet Volume 10.8 fL (9.4-12.4); Platelet Count 312 K/mcL (140-400); Red Blood Count 3.44 M/mcL (4.19-5.50); Red Cell Distribution Width 13.7 % (11.5-14.5); White Blood Count 6.5 K/mcL (4.3-11.1)
[2019-12-05] MEDS: *HR* Heparin 5,000 UNIT/ML VIAL SQ SCH ×2 (06:13→17:09)
[2019-12-05 06:21] LABS: BUN/Creatinine Ratio 20 (6-26); Blood Urea Nitrogen 11 mg/dL (8-23); Calcium 9.3 mg/dL (8.6-10.3); Carbon Dioxide 28 mEq/L (23-29); Chloride 102 mEq/L (98-107); Glucose 111 mg/dL (70-105); Osmolality,Calculated 280 (280-300); Potassium 3.8 mEq/L (3.5-5.1); Sodium 135 mEq/L (136-145); eGFR For African Americans > 60 (> 60); eGFR For Non-African Americans > 60 (> 60)
[2019-12-05] MEDS: Aspirin Enteric Coated 81 MG Tablet PO SCH (09:33)
[2019-12-05] MEDS: Thiamine (B-1) 100 MG TABLET PO SCH (09:33)
[2019-12-05] MEDS: Folic Acid 1 MG TABLET PO SCH (09:33)
[2019-12-05] MEDS: Vitamin B Complex/Vit C/Vit E 1 EACH TABLET PO SCH (09:33)
[2019-12-05] MEDS: Nicotine 21 MG PATCH.TD24 TD SCH (09:34)
[2019-12-05] MEDS: Lactulose Oral Soln 20 GM/30 ML UDC PO SCH ×2 (09:34→21:43)
[2019-12-05] MEDS: Cholecalciferol (D-3) 1,000 UNIT (25MCG) TABLET PO SCH (09:35)
[2019-12-05] MEDS: haloperidoL 1 MG TABLET PO SCH (21:42)
[2019-12-05] MEDS: traZODone 50 MG TABLET PO SCH (21:43)
[2019-12-06 04:14] LABS: Basophils % 0.6 %; Eosinophils # 0.2 K/mcL (0.0-0.6); Eosinophils % 2.2 %; Hematocrit 33.8 % (37.5-50.1); Hemoglobin 11.1 g/dL (12.9-16.9); Immature Granulocytes % 0.3 % (0-4); Lymphocytes # 2.2 K/mcL (0.6-4.6); Lymphocytes % 31.1 %; Mean Corpuscular HGB Conc 32.8 g/dL (31.6-35.5); Mean Corpuscular Hemoglobin 33.1 pg (28.0-33.3); Mean Corpuscular Volume 100.9 fL (83.0-100.0); Monocytes % 14.1 %; Neutrophils # 3.6 K/mcL (1.6-8.9); Platelet Count 306 K/mcL (140-400); Red Blood Count 3.35 M/mcL (4.19-5.50); Red Cell Distribution Width 13.7 % (11.5-14.5); Segmented Neutrophils % 51.7 %; White Blood Count 6.9 K/mcL (4.3-11.1)
[2019-12-06 04:35] LABS: BUN/Creatinine Ratio 17 (6-26); Blood Urea Nitrogen 9 mg/dL (8-23); Calcium 9.4 mg/dL (8.6-10.3); Carbon Dioxide 26 mEq/L (23-29); Chloride 100 mEq/L (98-107); Glucose 110 mg/dL (70-105); Osmolality,Calculated 275 (280-300); Potassium 3.8 mEq/L (3.5-5.1); Sodium 133 mEq/L (136-145); eGFR For African Americans > 60 (> 60); eGFR For Non-African Americans > 60 (> 60)
[2019-12-06] MEDS: *HR* Heparin 5,000 UNIT/ML VIAL SQ SCH (05:22)
[2019-12-06] MEDS: *HR* OxyCODONE Immed Rel 5 MG TABLET PO PRN ×2 (06:35→14:14)
[2019-12-06] MEDS: Aspirin Enteric Coated 81 MG Tablet PO SCH (08:22)
[2019-12-06] MEDS: Folic Acid 1 MG TABLET PO SCH (08:22)
[2019-12-06] MEDS: Vitamin B Complex/Vit C/Vit E 1 EACH TABLET PO SCH (08:22)
[2019-12-06] MEDS: Thiamine (B-1) 100 MG TABLET PO SCH (08:22)
[2019-12-06] MEDS: Cholecalciferol (D-3) 1,000 UNIT (25MCG) TABLET PO SCH (08:22)
[2019-12-06] MEDS: clonazePAM 0.5 MG TABLET PO PRN (08:22)
[2019-12-06] MEDS: Lactulose Oral Soln 20 GM/30 ML UDC PO SCH (08:23)
[2019-12-06] MEDS: Nicotine 21 MG PATCH.TD24 TD SCH (08:23)
[2019-12-06 10:22] VITALS: BP 130/69
== END 2019-12-06 14:24 | DRG 308 ==
LOC: EMEROOARM 15:58 → 3ANU 15:58 → SUATTDRO 17:46 → 3ANU 18:53
PROVIDERS: ADMIT Internal Medicine; ATTEND Pharmacist